=== PATIENT | female | born 1970 | race Caucasian/White ===

== ENCOUNTER 2023-04-16 11:41 | Emergency (ER) | payer BC | END 2023-04-16 12:24 | disposition left against medical advice (07) | LOC: CSHERS 11:41 | DX: Z53.21 Procedure and treatment not carried out due to patient leaving prior to being seen by health care provider (principal) ==

== ENCOUNTER 2023-08-31 08:52 | Outpatient (CLI) | payer BC | END 2023-08-31 08:53 | disposition home or self-care (01) | LOC: CSHRAD 08:52 | PROVIDERS: ATTEND Neurological Surgery | DX: M47.816 Spondylosis without myelopathy or radiculopathy, lumbar region (principal); M41.85 Other forms of scoliosis, thoracolumbar region | CPT/HCPCS: 72100 ==